=== PATIENT | male | born 1995 | race Two or more races ===

== ENCOUNTER 2019-03-26 21:13 | Inpatient (IN) | payer SELFPAY ==
[~2019-03-26] VITALS: Ht 180.3 cm; Wt 77.0 kg
[2019-03-26 22:27] LABS: Urine WBC None Seen /hpf (0 - 3)
[2019-03-26 22:31] LABS: Basophils # (auto) 0 uL; Basophils % (auto) 0.2 % (0.0-2.0); Eosinophils # (auto) 0.1 uL; Eosinophils % (auto) 0.6 % (0.0-7.0); Hematocrit 47.7 % (41.0-53.0); Hemoglobin 16.3 g/dL (13.5-17.5); Lymphocytes # (auto) 1.6 uL; Lymphocytes % (auto) 15.9 % (10.0-50.0); Mean Corpuscular Hemoglobin 29.3 pg (28.0-32.0); Mean Corpuscular Hgb Conc. 34.1 g/dL (32.0-36.0); Mean Corpuscular Volume 85.8 fL (80.0-100.0); Monocytes # (auto) 0.7 uL; Monocytes % (auto) 7.2 % (0.0-12.0); Neutrophils # (auto) 7.4 uL; Neutrophils % (auto) 76.1 % (37.0-80.0); Platelet Count (auto) 169 10^3/uL (140-450); Red Blood Cells 5.56 10^6/uL (4.5-5.90); Red Cell Distribution Width 13.4 % (11.8-14.3); White Blood Cell 9.8 10^3/uL (4.4-10.8)
[2019-03-26 22:34] LABS: Urine Bacteria NONE SEEN /hpf (None Seen); Urine Blood Negative /uL (Negative); Urine Specific Gravity 1.011 (1.001-1.035)
[2019-03-26 22:43] LABS: INR 1.01 (0.9-1.15); Partial Thromboplastin Time 25.2 sec (23.64-32.05)
[2019-03-26 22:46] LABS: Albumin 4.4 g/dL (3.4-5.0); BUN/Creatinine Ratio 13.4; Potassium 3.7 mmol/L (3.5-5.1)
[2019-03-26 22:50] LABS: Bilirubin, Total 0.5 mg/dL (0.2-1.0); Total Protein 7.5 g/dL (6.4-8.2)
[2019-03-26] MEDS ORDERED: SODIUM CHLORIDE 0.9% 1,000 ML IV ONE (23:45)
[2019-03-26] MEDS ORDERED: IOHEXOL 300 MG/ML 100ML BOTTLE IJ ONE (23:51)
[2019-03-27] MEDS ORDERED: metroNIDAZOLE 500MG/100ML 100 ML IV ONE (01:30)
[2019-03-27] MEDS ORDERED: MORPHINE SULF INJ 2 MG/ML SYRINGE 1ML IV ONE (01:30)
[2019-03-27] MEDS ORDERED: cefTRIAXone 1GM/50ML D5W 50 ML IV ONE (01:30)
[2019-03-27] MEDS ORDERED: ONDANSETRON HCL 4 MG/2 ML VIAL IV ONE (01:30)
[2019-03-27] MEDS ORDERED: SODIUM CHLORIDE 0.9% 1,000 ML IV ONE (01:30)
[2019-03-27] MEDS: SODIUM CHLORIDE 0.9% 1,000 ML IV SCH ×2 (06:14→15:15)
[2019-03-27] MEDS: metroNIDAZOLE 500MG/100ML 100 ML IV SCH ×3 (06:14→21:47)
--- NOTE | 2019-03-27 08:45 | NUR ---
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
--- NOTE | 2019-03-27 09:10 | NUR ---
MS admit from ER DEMAR MARTINEZ admitted to tele/MS after SBAR received. Patient oriented to COLLETTE RICO, primary RN, unit, room, bed, and unit policies regarding patient care and visiting hours. Patient weighed by bedscale and encouraged to call if they need something. All questions and concerns addressed, patient verbalized understanding. Note:
--- NOTE | 2019-03-27 09:12 | NUR ---
Spoke to SOFTWARE QUALITY TEST ENGINEER regarding aptient surgery today. Per SOFTWARE QUALITY TEST ENGINEER MD escobar will be in around 1100 and surgery is scheduled after that. informed SOFTWARE QUALITY TEST ENGINEER that ER filled out consents but patient doesnt feel comfortable signing until MD explains surgery
[2019-03-27] MEDS ORDERED: INFLUENZA QUAD 2019-2020 0.5ml SYRG IM ONE (09:15)
[2019-03-27] MEDS: cefTRIAXone 1GM/50ML D5W 50 ML IV SCH (09:58)
[2019-03-27] MEDS: PANTOPRAZOLE 40 MG/10 ML VIAL INJ IV SCH (09:59)
--- NOTE | 2019-03-27 12:14 | NUR ---
PATIENT TAKEN DOWN TO PRE OP
[2019-03-27] MEDS ORDERED: BUPIVACAINE 0.25% INJ 50ML VIAL ONE (12:36)
[2019-03-27] MEDS ORDERED: SUCCINYLCHOLINE CHLORIDE 20 MG/ML 10ML VIAL IV ONE (12:38)
[2019-03-27] MEDS ORDERED: ceFAZolin 1GM/50ML 50 ML IV ONE (12:42)
[2019-03-27] MEDS ORDERED: MIDAZOLAM HCL 1MG/1ML-2 ML VIAL ONE (12:46)
[2019-03-27] MEDS ORDERED: METOCLOPRAMIDE HCL 5MG/ml INJ 2ml VIAL ONE (12:46)
[2019-03-27] MEDS ORDERED: LIDOCAINE 1% (LOCAL ANESTH.) PF 5ml SDV ONE (12:48)
[2019-03-27] MEDS ORDERED: ROCURONIUM 10MG/ML 10ML VIAL IV ONE (12:48)
[2019-03-27] MEDS ORDERED: PROPOFOL 10 MG/ML 20 ML IV ONE (12:50)
[2019-03-27] MEDS ORDERED: fentaNYL CITRATE 100 MCG/2 ML VL ONE (12:57)
[2019-03-27 13:00] VITALS: BP 110/62
[2019-03-27] MEDS ORDERED: NALOXONE HCL 0.4 MG/ML VIAL IV PRN (13:00)
[2019-03-27] MEDS ORDERED: HYDROmorphone HCL 2 MG/ML VL IV PRN ×2 (13:00)
[2019-03-27] MEDS ORDERED: ONDANSETRON HCL 4 MG/2 ML VIAL IV PRN (13:00)
[2019-03-27] MEDS ORDERED: GLYCOPYRROLATE 0.2 MG/ML 1ML VIAL ONE (13:45)
[2019-03-27] MEDS ORDERED: NEOSTIGMINE 1 MG/ML INJ (10mg/10ML VIAL) ONE (13:45)
[2019-03-27] MEDS ORDERED: KETOROLAC TROMETH 30 MG/ML 1ML VIAL ONE (13:46)
--- NOTE | 2019-03-27 14:20 | NUR ---
recieved report from post op RN
--- NOTE | 2019-03-27 14:32 | NUR ---
Patient back in room alert orientated no respiratory distress noted
[2019-03-27 17:10] VITALS: BP 109/60
--- NOTE | 2019-03-27 19:25 | NUR ---
paged hospitalist for diet order
[2019-03-27 22:00] VITALS: BP 109/58
[2019-03-27] MEDS: MORPHINE SULFATE 4 MG/ML SYR/VIAL IV PRN (23:51)
[2019-03-28] MEDS: ONDANSETRON HCL 4 MG/2 ML VIAL IV PRN ×2 (01:30→05:55)
--- NOTE | 2019-03-28 01:49 | NUR ---
AMBULATED WITH PATIENT AROUND STATION PT REPORTS PASSING GAS
[2019-03-28] MEDS: MORPHINE SULFATE 4 MG/ML SYR/VIAL IV PRN ×2 (04:47→05:55)
[2019-03-28] MEDS: SODIUM CHLORIDE 0.9% 1,000 ML IV SCH ×2 (04:54→15:23)
[2019-03-28 05:00] VITALS: BP 112/55
[2019-03-28] MEDS: metroNIDAZOLE 500MG/100ML 100 ML IV SCH ×3 (05:54→21:48)
[2019-03-28 06:11] LABS: Basophils # (auto) 0 uL; Basophils % (auto) 0.2 % (0.0-2.0); Eosinophils # (auto) 0 uL; Eosinophils % (auto) 0.3 % (0.0-7.0); Hematocrit 42.6 % (41.0-53.0); Hemoglobin 14.6 g/dL (13.5-17.5); Lymphocytes # (auto) 0.9 uL; Lymphocytes % (auto) 14.8 % (10.0-50.0); Mean Corpuscular Hemoglobin 29.1 pg (28.0-32.0); Mean Corpuscular Hgb Conc. 34.2 g/dL (32.0-36.0); Mean Corpuscular Volume 85.2 fL (80.0-100.0); Monocytes # (auto) 0.4 uL; Monocytes % (auto) 6.2 % (0.0-12.0); Neutrophils % (auto) 78.5 % (37.0-80.0); Platelet Count (auto) 166 10^3/uL (140-450); Red Cell Distribution Width 12.9 % (11.8-14.3); White Blood Cell 6.4 10^3/uL (4.4-10.8)
[2019-03-28 06:16] LABS: BUN/Creatinine Ratio 9.6; Calcium 8.5 mg/dL (8.5-10.1); Potassium 3.9 mmol/L (3.5-5.1)
[2019-03-28 09:00] VITALS: BP 108/59
[2019-03-28] MEDS: cefTRIAXone 1GM/50ML D5W 50 ML IV SCH (10:07)
[2019-03-28] MEDS: PANTOPRAZOLE 40 MG/10 ML VIAL INJ IV SCH (10:07)
[2019-03-28] MEDS ORDERED: LACTULOSE 20Gm/30ML SOLN PO PRN (11:45)
[2019-03-28] MEDS: HYDROcodone-ACET 5/325MG TAB PO PRN ×2 (12:44→20:50)
[2019-03-28 13:00] VITALS: BP 111/59
[2019-03-28 17:00] VITALS: BP 111/56
--- NOTE | 2019-03-28 19:25 | NUR ---
Opening Shift Note Received report from Brock KIMBLE. Assumed care of patient, awake and alert. No S/S of distress/SOB or pain. Post op site c/d/i. Instructed on POC and to call for assist PRN, will continue to monitor for changes Q1hr and PRN.
[2019-03-28] MEDS: DOCUSATE SOD 100 MG CAP PO SCH (21:48)
[2019-03-28 22:00] VITALS: BP 112/62
[2019-03-29] MEDS: SODIUM CHLORIDE 0.9% 1,000 ML IV SCH ×2 (03:00→13:05)
[2019-03-29 04:19] VITALS: BP 118/62
[2019-03-29] MEDS: metroNIDAZOLE 500MG/100ML 100 ML IV SCH ×2 (06:14→14:27)
[2019-03-29 09:00] VITALS: BP 108/52
[2019-03-29] MEDS: cefTRIAXone 1GM/50ML D5W 50 ML IV SCH (09:52)
[2019-03-29] MEDS ORDERED: ENOXAPARIN SOD 40 MG/0.4 ML SYRINGE SC SCH (10:00)
[2019-03-29] MEDS: DOCUSATE SOD 100 MG CAP PO SCH (10:37)
[2019-03-29] MEDS: PANTOPRAZOLE 40 MG/10 ML VIAL INJ IV SCH (10:37)
[2019-03-29 13:00] VITALS: BP 107/53
[2019-03-29] MEDS: HYDROcodone-ACET 5/325MG TAB PO PRN (14:27)
[2019-03-29 16:07] VITALS: BP 107/53
--- NOTE | 2019-03-29 16:50 | NUR ---
DISCHARGE INSTRUCTIONS PROVIDED TO PT. PT VERBALIZED UNDERSTANDING FOR PRESCRIPTION ORDERS AND FOLLOW UP APPOINTMENT WITH DR. PRATT (SURGICAL). EDUCATIONAL MATERIAL PROVIDED, ALL QUESTIONS AND CONCERNS ADDRESSED. IV CATHETER DC'D CATHETER INTACT, NO PHLEBITIS. PT SAFELY ESCORTED OUT OF UNIT. NO S/S OF DISTRESS.
[2019-03-29] MEDS ORDERED: DOCU100C8 PO (17:50)
[2019-03-29] MEDS ORDERED: AMOX500T86 PO (17:50)
[2019-03-29] MEDS ORDERED: PANT40TA2 PO (17:50)
[2019-03-29] MEDS ORDERED: IBU600T PO (17:50)
[2019-03-29] MEDS ORDERED: LACT10SO3 PO (17:50)
== END 2019-03-29 17:00 | disposition home or self-care (01) | DRG 340 ==
LOC: ER 21:21 → OVERFLOW 21:22 → WEST WING 03-27 08:49
PROVIDERS: ADMIT Nurse Practitioner; ATTEND Internal Medicine Nephrology
PROC: 0DTJ4ZZ Resection of Appendix, Percutaneous Endoscopic Approach (ICD-10-PCS; principal; 2019-03-27 12:44)
DX: K35.33 Acute appendicitis with perforation, localized peritonitis, and gangrene, with abscess (principal); K66.0 Peritoneal adhesions (postprocedural) (postinfection)
CPT/HCPCS: 36415; 71045; 74176; 74177; 80048; 80053; 81001; 82150; 83690; 83735; 85025; 85610; 85730; 86850; 86900; 86901; C9113; G0378; J0330; J0690; J0696; J1885; J2250; J2405; J2704; J3490